=== PATIENT | female | born 1970 | race Caucasian/White ===

== ENCOUNTER 2016-10-08 16:43 | Emergency (ER) | payer OTHER ==
[~2016-10-08] VITALS: Ht 162.6 cm; Wt 69.3 kg
[2016-10-08] MEDS ORDERED: LARIN FE 1.5-31 EACH PO (17:36)
[2016-10-08 18:54] LABS: ADD MIUA? YES; BILIRUBIN NEGATIVE; BLOOD SMALL; COLOR YELLOW ((YELLOW)); GLUCOSE (STRIP) NEGATIVE; KETONES NEGATIVE; LEUKOCYTES LARGE; NITRITE NEGATIVE; PROTEIN (STRIP) NEGATIVE; SPECIFIC GRAVITY 1.016 (1.000-1.030); UROBILINOGEN 0.2 MG/DL (0.2-1.0)
[2016-10-08 19:01] LABS: HEMATOCRIT 40.2 % (36.0-46.0); MCH 27.5 PG (29.0-34.0); MCHC 31.8 G/DL (30.0-36.0); MCV 86.5 FL (83-99); MEAN PLAT.VOLUME 8.9 uM^3 (9.5-12.4); PLATELET COUNT 346 K/uL (156-360); RBC DIS.WIDTH-CV 13.7 % (11.8-14.6); RBC DIS.WIDTH-SD 43.1 % (39-53); RED BLOOD COUNT 4.65 M/uL (3.80-5.20); WHITE BLOOD COUNT 11.4 K/uL (4.1-10.2)
[2016-10-08 19:04] LABS: CASTS NONE SEEN /LPF; EPITHELIAL CELLS 2+ /HPF; MUCUS NONE SEEN /LPF; RED BLOOD CELLS 0-5 /HPF (0-5); WHITE BLOOD CELLS TNTC /HPF (0-5)
[2016-10-08 19:05] LABS: BACTERIA 1+ /HPF; UCUL ADDED? YES
[2016-10-08 19:10] LABS: CHLORIDE 105 mEq/L (99-109); POTASSIUM 3.9 mEq/L (3.7-5.4); SODIUM 141 mEq/L (136-147)
[2016-10-08 19:12] LABS: GLUCOSE 102 mg/dL (70-99)
[2016-10-08 19:13] LABS: ANION GAP 10 MEQ/L (2-14)
[2016-10-08 19:14] LABS: TOTAL BILIRUBIN 0.2 mg/dL (0.0-1.0)
[2016-10-08 19:15] LABS: ALKALINE PHOSPHATASE 57 IU/L (3-129)
[2016-10-08 19:16] LABS: GFR ESTIMATE (CALCULATED) > 59 mL/min/
[2016-10-08 19:17] LABS: UREA NITROGEN (BUN) 10 mg/dL (9-23)
[2016-10-08] MEDS ORDERED: KEFLEX500 MG PO (19:22)
[2016-10-08] MEDS ORDERED: MOTRIN800 MG PO (19:22)
[2016-10-08 19:25] LABS: QUANTITATIVE HCG < 4.0 MIU/ML
[2016-10-08 19:42] VITALS: BP 153/97
== END 2016-10-08 19:42 | disposition home or self-care (01) ==
LOC: EME 16:43
PROVIDERS: Nurse Practitioner Family
DX: N39.0 Urinary tract infection, site not specified (principal); R31.9 Hematuria, unspecified; N89.9 Noninflammatory disorder of vagina, unspecified
CPT/HCPCS: 76856; 80053; 81003; 84702; 85027; 87086; 99281; 99284